=== PATIENT | female | born 1985 | race Caucasian/White ===

== ENCOUNTER 2016-12-25 01:58 | Inpatient (IN) | payer MEDICAID ==
[~2016-12-25] VITALS: Ht 157.5 cm; Wt 52.7 kg
[2016-12-25 02:37] LABS: BASOPHILS # (AUTO) 0.03 K/uL (0.00-0.20); BASOPHILS % (AUTO) 0.5 % (0.0-2.0); EOSINOPHILS # (AUTO) 0.21 K/uL (0.00-0.70); EOSINOPHILS % (AUTO) 3.17 % (1.0-6.0); HEMATOCRIT 38.1 % (36-46); HEMOGLOBIN 13.3 g/dL (12.0-16.0); LYMPHOCYTES # (AUTO) 1.9 K/uL (1.0-4.8); MEAN CORPUSCULAR HEMOGLOBIN 30.8 pg (26.0-34.0); MEAN CORPUSCULAR HGB CONC 34.9 G/dL (31.0-37.0); MEAN CORPUSCULAR VOLUME 88 fL (80-100); MONOCYTES # (AUTO) 0.6 K/uL (0.1-1.0); MONOCYTES % (AUTO) 9.4 % (2.0-9.0); NEUTROPHILS # (AUTO) 3.8 K/uL (1.8-7.7); NEUTROPHILS % (AUTO) 57.9 % (40.0-70.0); PLATELET COUNT (AUTO) 277 K/uL (150-450); RED BLOOD CELL COUNT(AUTO) 4.32 MIL/uL (4.00-5.20); RED CELL DISTRIBUTION WIDTH 12.4 % (11.5-14.5); WHITE BLOOD COUNT (AUTO) 6.6 K/uL (4.5-11.0)
[2016-12-25 02:44] LABS: ANION GAP 8 mmol/L (8-16); CALCIUM, TOTAL 8.6 mg/dL (8.8-10.5); CARBON DIOXIDE 28 mmol/L (22-29); CHLORIDE 102 mmol/L (98-107); CREATININE 0.78 mg/dL (0.60-1.30); GLOMERULAR FILTR. RATE CALC > 60 mL/min (>60); POTASSIUM 3.6 mmol/L (3.5-5.1); SODIUM SERUM 138 mmol/L (136-145); UREA NITROGEN, BLOOD 16 mg/dL (7-18)
[2016-12-25 02:50] LABS: ALANINE AMINOTRANSFERASE 27 U/L (12-78); ALBUMIN 3.8 g/dL (3.4-5.0); ASPARTATE AMINOTRANSFERASE 34 U/L (15-37); BILIRUBIN,TOTAL 0.3 mg/dL (0.1-1.0); TOTAL PROTEIN, SERUM 7.6 g/dL (6.4-8.2)
[2016-12-25] MEDS ORDERED: DiphenhydrAMINE HCL 50 MG/ML VIAL IM ONE (03:15)
[2016-12-25] MEDS ORDERED: LORazepam 2 MG/ML VIAL IM ONE (03:15)
[2016-12-25] MEDS ORDERED: HALOPERIDOL LACTATE 5 MG/ML VIAL IM ONE (03:15)
[2016-12-25] MEDS ORDERED: ZOLPIDEM TARTRATE 10 MG TABLET PO PRN (05:00)
[2016-12-25] MEDS ORDERED: IBUPROFEN 400 MG TABLET PO PRN (15:15)
[2016-12-25] MEDS ORDERED: ACETAMINOPHEN 325 MG TABLET PO PRN (15:15)
[2016-12-25] MEDS ORDERED: ALBUTEROL SULFATE HFA 90 MCG/PUFF 8 GM INHALER IH PRN (15:15)
[2016-12-25 18:42] VITALS: BP 108/77
[2016-12-26 06:30] LABS: CHOL/HDL RATIO 2.7 (3.9-5.7); THYROID STIMULATING HORMONE 0.54 uIU/mL (0.36-3.74)
[2016-12-26 07:26] LABS: HEMOGLOBIN A1C 5.7 % (4.5-6.2)
[2016-12-26 19:01] VITALS: BP 104/64
[2016-12-26 19:52] VITALS: BP 98/58
[2016-12-27 05:48] VITALS: BP 94/58
[2016-12-27 14:15] VITALS: BP 103/60
[2016-12-27 16:55] VITALS: BP 111/66
[2016-12-27 17:49] LABS: APPEARANCE,URINE CLOUDY (CLEAR); GLUCOSE, URINE (UA) NEGATIVE (NEGATIVE); KETONES,URINE NEGATIVE (NEGATIVE); LEUKOCYTE ESTERASE ,URINE NEGATIVE (NEGATIVE); OCCULT BLOOD,URINE LARGE (NEGATIVE); PH,URINE 7.5 (5.0-8.0); PROTEIN,URINE NEGATIVE (NEGATIVE)
[2016-12-27 17:51] LABS: ADD UA MICROSCOPIC YES
[2016-12-27 18:01] LABS: SQUAMOUS EPITHELIAL CELL,UR Few /LPF (None Seen)
[2016-12-27 18:03] LABS: RBC,URINE >100 /HPF (0-2); WBC,URINE 0-2 /HPF (0-5)
[2016-12-27 18:15] VITALS: BP 118/85
[2016-12-27] MEDS: LORazepam 2 MG TABLET PO PRN (18:37)
[2016-12-27] MEDS ORDERED: INFLUENZA VIRUS VACCINE QVS 2016-17 (3YR+)/PF 60 MCG/0.5 ML SYRINGE IM ONE (19:00)
[2016-12-28 03:22] VITALS: BP 102/64
[2016-12-28 08:38] VITALS: BP 102/63
[2016-12-28] MEDS ORDERED: RISP.5 PO (09:37)
[2016-12-28] MEDS: RisperiDONE 0.5 MG TABLET PO SCH ×2 (10:15→16:27)
[2016-12-28 16:09] VITALS: BP 109/65
[2016-12-29 02:07] VITALS: BP 100/58
[2016-12-29] MEDS: RisperiDONE 0.5 MG TABLET PO SCH ×2 (08:21→16:04)
[2016-12-29 08:30] VITALS: BP 101/64
[2016-12-29 16:32] VITALS: BP 100/67
[2016-12-29] MEDS: LORazepam 2 MG TABLET PO PRN (18:58)
[2016-12-30 01:54] VITALS: BP 100/63
[2016-12-30 08:28] VITALS: BP 100/63
[2016-12-30] MEDS ORDERED: RisperiDONE 3 MG TABLET PO SCH (09:00)
[2016-12-30 11:06] LABS: GLUCOSE,POINT OF CARE 145 MG/DL (70-110)
[2016-12-30 12:38] VITALS: BP 76/49
[2016-12-30 15:12] VITALS: BP 102/78
[2016-12-30 16:05] VITALS: BP 121/74
[2016-12-30] MEDS: RisperiDONE 1 MG TABLET PO SCH (17:00)
[2016-12-30 18:12] VITALS: BP 121/74
[2016-12-31] VITALS: BP 100/62
[2016-12-31 06:00] VITALS: BP 104/64
[2016-12-31 08:18] VITALS: BP 109/66
[2016-12-31] MEDS: CIPROFLOXACIN HCL 500 MG TABLET PO SCH ×2 (08:48→16:36)
[2016-12-31] MEDS: RisperiDONE 1 MG TABLET PO SCH ×2 (08:49→16:36)
[2016-12-31 16:08] VITALS: BP 112/69
[2016-12-31 17:42] VITALS: BP 112/69
[2017-01-01] VITALS: BP 112/67
[2017-01-01 00:06] VITALS: BP 112/67
[2017-01-01] MEDS: HALOPERIDOL 5 MG TABLET PO PRN (00:06)
[2017-01-01] MEDS: LORazepam 2 MG TABLET PO PRN (00:06)
[2017-01-01 01:27] VITALS: BP 125/69
[2017-01-01 08:34] VITALS: BP 130/75
[2017-01-01] MEDS: RisperiDONE 1 MG TABLET PO SCH ×3 (09:00→17:24)
[2017-01-01] MEDS: CIPROFLOXACIN HCL 500 MG TABLET PO SCH ×2 (09:00→16:37)
[2017-01-01 13:35] VITALS: BP 112/67
[2017-01-01 16:01] VITALS: BP 97/57
[2017-01-02 05:20] VITALS: BP 101/61
[2017-01-02 05:23] VITALS: BP 101/61
[2017-01-02] MEDS: CIPROFLOXACIN HCL 500 MG TABLET PO SCH ×2 (08:56→16:03)
[2017-01-02] MEDS: RisperiDONE 1 MG TABLET PO SCH ×2 (08:57→16:03)
[2017-01-02 09:01] VITALS: BP 97/67
[2017-01-02 11:50] VITALS: BP 141/66
[2017-01-02 16:04] VITALS: BP 115/62
[2017-01-02 16:09] VITALS: BP 115/62
[2017-01-03 01:19] VITALS: BP 100/61
[2017-01-03 01:50] VITALS: BP 100/61
[2017-01-03 08:18] VITALS: BP 110/64
[2017-01-03] MEDS: RisperiDONE 1 MG TABLET PO SCH ×2 (09:00→16:54)
[2017-01-03] MEDS: CIPROFLOXACIN HCL 500 MG TABLET PO SCH ×2 (09:24→16:54)
[2017-01-03] MEDS: NICOTINE 14 MG/24 HOUR PATCH TD SCH (12:19)
[2017-01-03 16:02] VITALS: BP 112/67
[2017-01-03] MEDS: LORazepam 2 MG TABLET PO PRN (17:51)
[2017-01-04 00:17] VITALS: BP 116/67
[2017-01-04] MEDS: CIPROFLOXACIN HCL 500 MG TABLET PO SCH ×2 (08:48→16:14)
[2017-01-04] MEDS: NICOTINE 14 MG/24 HOUR PATCH TD SCH (08:48)
[2017-01-04] MEDS: RisperiDONE 1 MG TABLET PO SCH ×3 (08:48→17:00)
[2017-01-04 09:15] VITALS: BP 107/61
[2017-01-04 18:17] VITALS: BP 112/77
[2017-01-04] MEDS ORDERED: ONDANSETRON HCL 4 MG TABLET PO PRN (21:00)
[2017-01-04] MEDS: HALOPERIDOL 5 MG TABLET PO PRN (23:44)
[2017-01-05 00:17] VITALS: BP 116/77
[2017-01-05] MEDS ORDERED: LORazepam 2 MG TABLET PO PRN (00:30)
[2017-01-05] MEDS: RisperiDONE 1 MG TABLET PO SCH (09:00)
[2017-01-05] MEDS: CIPROFLOXACIN HCL 500 MG TABLET PO SCH (09:37)
[2017-01-05] MEDS: NICOTINE 14 MG/24 HOUR PATCH TD SCH (09:38)
[2017-01-05] MEDS ORDERED: RISP1 PO (10:07)
[2017-01-05] MEDS ORDERED: CIPR-278 PO (10:07)
[2017-01-05] MEDS ORDERED: ZOLPIDEM TARTRATE 10 MG TABLET PO SCH (21:00)
== END 2017-01-05 13:15 | disposition home or self-care (01) | DRG 750 ==
LOC: EMS 01:59 → AHU 13:29 → B2S 12-27 18:00
PROVIDERS: ADMIT Psychiatry & Neurology Psychiatry; ATTEND Psychiatry & Neurology Psychiatry
PROC: 3E0234Z Introduction of Serum, Toxoid and Vaccine into Muscle, Percutaneous Approach (ICD-10-PCS; principal; 2016-12-28)
DX: F20.0 Paranoid schizophrenia (principal); G92 Toxic encephalopathy; E83.51 Hypocalcemia; J45.909 Unspecified asthma, uncomplicated; F15.10 Other stimulant abuse, uncomplicated; F17.200 Nicotine dependence, unspecified, uncomplicated; Z88.0 Allergy status to penicillin; Z88.2 Allergy status to sulfonamides; Z88.8 Allergy status to other drugs, medicaments and biological substances; Z71.51 Drug abuse counseling and surveillance of drug abuser; Z23 Encounter for immunization
CPT/HCPCS: 82962; 83036; 84443; 87086; 90471; 96372; 99285; G0480; J1200; J1630; J2060; J3535; Q0162

== ENCOUNTER 2016-12-30 11:42 | Emergency (ER) | payer MEDICAID ==
[~2016-12-30] VITALS: Ht 160 cm; Wt 54.0 kg
[~2016-12-30 11:42] MED LIST: RISP.5 PO
[2016-12-30] MEDS ORDERED: SODIUM CHLORIDE 0.9% 1,000 ML IV ONE (12:45)
[2016-12-30 13:38] VITALS: BP 102/53
== END 2016-12-30 14:23 | disposition other institution (70) ==
LOC: EMS 12:13
DX: F29 Unspecified psychosis not due to a substance or known physiological condition (principal); R55 Syncope and collapse; J45.909 Unspecified asthma, uncomplicated; F31.9 Bipolar disorder, unspecified; Z88.0 Allergy status to penicillin; Z88.8 Allergy status to other drugs, medicaments and biological substances; Z88.2 Allergy status to sulfonamides
CPT/HCPCS: 93005; 96374; 99284; J7030